=== PATIENT | female | born 2000 | race Caucasian/White ===

== ENCOUNTER 2019-12-10 16:36 | Emergency (ER) | payer OTHER, SELFPAY ==
[2019-12-10 16:49] VITALS: BP 164/70; PULSE 119; RESP 20; TEMP 37.5; O2SAT 99
--- NOTE | 2019-12-10 17:36 | ED.URI ---
HPI - URI/Sore Throat General Chief Complaint: Upper Respiratory Infection Stated Complaint: sore throat/diarreha/ear pain/body aches Time Seen by Provider: 12/10/19 17:25 Source: patient and RN notes reviewed Mode of arrival: ambulatory Limitations: no limitations History of Present Illness HPI Narrative: 19 year old female who presents to [facility] care with 4 day history of sore throat, head congestion, bilateral ear pain, and intermittent headache with fatigue. Patient also states one day history of left groin discomfort intermittently denies any nausea or vomiting or any incidence of diarrhea. Patient denies any cough or any noted shortness of breath or wheezing, lungs clear to auscultation with NWL899% on room air. MD elicited complaint: fever (feverish), sore throat, rhinorrhea, nasal congestion and other (headache, ear pain, fatigue, intermittent left groin discomfort) Onset (ago): day(s) (4) Consistency: intermittent and progressively worsening Severity: moderate Pain scale (0-10): 4 Description of mucous: clear Able to tolerate fluids by mouth: Yes Exacerbating factors: swallowing Relieving factors: nothing Associated symptoms: fever (states feverish), headache, rhinorrhea, nasal congestion, sore throat, ear pain and other (left groin pain intermittent) Treatments prior to arrival: ibuprofen Related Data Allergies Allergy/AdvReac Type Severity Reaction Status Date / Time No Known Allergies Allergy Verified 12/10/19 17:17 Review of Systems Review of Systems: Narrative: CONSTITUTIONAL:reports has felt feverish, chills, or sweats. EYES: Denies visual changes, redness, or discharge. ENT:positive rhinorrhea, congestion, sore throat, or otalgia. CARDIOVASCULAR: Denies chest pain, palpitations, or edema. RESPIRATORY: Denies cough or dyspnea. GASTROINTESTINAL: Denies abdominal pain, nausea, vomiting, or diarrhea.intermittent left groin discomfort GENITOURINARY: Denies dysuria or hematuria. SKIN: Denies rash or itching. MUSCULOSKELETAL: Denies back pain, joint pain, or myalgia. NEUROLOGIC: Positive frontal headache,no numbness, or weakness. PSYCHIATRIC: Denies anxiety or depression. 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 There is no relevant family history pertinent to the presenting complaint Exam Narrative: Exam Narrative: GENERAL: Ill-appearing, well-nourished, and in no acute distress. HEAD: Normocephalic, atraumatic. EYES: PERRLA and EOMI. ENT: Nares red with rhinorrhea no epistaxis. Mucous membranes moist,.frontal headache and pressure. TMs normal with good light reflex, throat red with white patches to tonsils, tonsils enlarged NECK: Supple. lymphadenopathy CHEST: Clear to auscultation. No respiratory distress.SAO2 99% on room air. HEART: Regular rate and rhythm. No murmur heard. Normal peripheral pulses. ABDOMEN: Soft, nontender, nondistended, normal active bowel sounds. EXTREMITIES: Normal range of motion. No edema. SKIN: Warm, dry, no rash. NEURO: No focal deficits. Alert and oriented x3. Course Vital Signs Vital signs: Vital Signs Temperature 37.5 C 12/10/19 16:49 Pulse Rate 119 H 12/10/19 16:49 Respiratory Rate 20 12/10/19 16:49 Blood Pressure 164/70 H 12/10/19 16:49 Pulse Oximetry 99 12/10/19 16:49 Temperature 37.5 C 12/10/19 16:49 Pulse Rate 119 H 12/10/19 16:49 Respiratory Rate 20 12/10/19 16:49 Blood Pressure 164/70 H 12/10/19 16:49 Pulse Oximet
== END 2019-12-10 17:55 | disposition home or self-care (01) ==
PROVIDERS: Emergency Provider Registered Nurse
DX: J01.90 Acute sinusitis, unspecified (principal); J02.9 Acute pharyngitis, unspecified
CPT/HCPCS: 87081; 87880; 99213; G0463

== ENCOUNTER 2022-01-21 14:28 | Emergency (ER) | payer BC, SELFPAY ==
[2022-01-21 14:34] VITALS: BP 125/67; PULSE 85; RESP 20; TEMP 36.8; O2SAT 99
--- NOTE | 2022-01-21 14:35 | ED.URI ---
HPI - URI/Sore Throat General Chief Complaint: Upper Respiratory Infection Stated Complaint: sore throat w/ ear pain Time Seen by Provider: 01/21/22 14:35 Source: patient and RN notes reviewed History of Present Illness HPI Narrative: Patient is a 21-year-old female who presents the urgent care with complaints of sore throat, bilateral ear pain and postnasal drainage. Patient states that she has not taken anything [id number] for her symptoms and denies any fever, nausea, vomiting. States her symptoms started 2 days ago. No other acute complaints. No acute distress noted. Patient aware of the plan of care. Some parts of this dictation were generated by voice recognition software and may contain typographical and/or grammatical inaccuracies. Related Data Home Medications Medication Instructions Recorded Confirmed escitalopram oxalate mg 01/21/22 01/21/22 hydroxyzine pamoate 01/21/22 trazodone 01/21/22 Allergies Allergy/AdvReac Type Severity Reaction Status Date / Time No Known Allergies Allergy Verified 01/21/22 14:35 Review of Systems Review of Systems: CONSTITUTIONAL: Denies fever, chills, or sweats. EYES: Denies visual changes, redness, or discharge. ENT: Reports of sore throat, congestion, postnasal drainage CARDIOVASCULAR: Denies chest pain, palpitations, or edema. RESPIRATORY: Denies cough or dyspnea. GASTROINTESTINAL: Denies abdominal pain, nausea, vomiting, or diarrhea. GENITOURINARY: Denies dysuria or hematuria. SKIN: Denies rash or itching. MUSCULOSKELETAL: Denies back pain, joint pain, or myalgia. NEUROLOGIC: Denies headache, numbness, or weakness. All other systems reviewed are negative, except as documented in HPI. [facility] Past Medical History Medical History (Updated 01/21/22 @ 15:04 by SILVIA Saldana) Patient denies significant medical history Social History Social History (Updated 12/13/19 @ 16:13 by Lorena Quezada NP) Smoking status: Never smoker Additional occupation/education comments: [employer] Gender identity (if verbalized by the patient): Female Comments At the time of my signature, I reviewed and agree with the nursing past medical, surgical, social, and family history. There is no relevant family history pertinent to the patient complaint. Exam Narrative: GENERAL: This is a well-nourished, well-developed patient, in no apparent distress. HEAD: normocephalic, atraumatic. EYES: PERRL. Sclera clear/white. Vision is grossly intact. EARS: External ears normal, auditory canals clear and without drainage, mild bilateral effusions without otitis. Bilateral TMs normal without perforation. Hearing grossly intact. NOSE: External nose normal with no obvious nasal discharge, nares without redness, no rhinorrhea. THROAT: Mucous membranes moist, posterior pharynx clear. Moderate postnasal drainage NECK: Neck supple, non-tender without lymphadenopathy CARDIOVASCULAR: Regular rate and rhythm without murmurs, gallops, or rubs. RESPIRATORY: Clear to auscultation. Breath sounds equal bilaterally. No wheezes, rales, or rhonchi. SKIN: warm, intact with no suspicious lesions or rash, good texture and turgor. NEURO: awake, alert, and oriented to person, place and time. There were no obvious focal neurologic abnormalities. EXTREMITIES: No clubbing, cyanosis, or edema. Course Course Level of Care: Express Care Visit Vital Signs Vital signs: Vital Signs Temperature 98.3 F 01/21/22 14:34 Pulse Rate 85 01/21/22 14:34 Respiratory Rate 20 01/21/22 14:34 Blood Pressure 125/67 01/21/22 14:34 Pulse Oximetry 99 01/21/22 14:34 Temperature 98.3 F 01/21/22 14:45 Pulse Rate 85 01/21/22 14:45 Respiratory Rate 20 01/21/22 14:45 Blood Pressure 125/67 01/21/22 14:45 Pulse Oximetry 99 01/21/22 14:45 Reviewed MDM - URI/Sore Throat MDM Narrative Medical decision making narrative: Reviewed lab results with the patient. She is a
[2022-01-21 14:45] VITALS: BP 125/67; PULSE 85; RESP 20; TEMP 36.8; O2SAT 99
== END 2022-01-21 15:12 | disposition home or self-care (01) ==
PROVIDERS: Emergency Provider Nurse Practitioner Family
DX: J02.9 Acute pharyngitis, unspecified (principal)
CPT/HCPCS: 87081; 87880; 99213; G0463

== ENCOUNTER 2023-10-07 13:44 | Outpatient (CLI) | payer OTHER, BC, SELFPAY ==
[2023-10-07 19:17] LABS: Alanine Aminotransferase 33 U/L (6-35); Albumin Level 4.3 g/dL (3.5-5.1); Alkaline Phosphatase 84 U/L (38-126); Anion Gap 9 mmol/L (8-16); Aspartate Amino Transferase 31 U/L (14-36); Bilirubin,Total 0.4 mg/dL (0.2-1.3); Blood Urea Nitrogen 16 mg/dL (7-17); Calcium 9.5 mg/dL (8.4-10.2); Carbon Dioxide 23 mmol/L (22-30); Chloride 106 mmol/L (98-107); Cholesterol 191 mg/dL (0-200); Estimated Glomerular Filt Rate > 60; Glucose 98 mg/dL (65-110); HDL Direct 33 mg/dL; Potassium 4.2 mmol/L (3.4-5.0); Sodium 138 mmol/L (137-145); Triglycerides 144 mg/dL (<150)
[2023-10-07 19:27] LABS: LDL Cholesterol Direct 117 mg/dL
[2023-10-07 20:05] LABS: Basophils Absolute Auto 0.1 K/mm3 (0.0-0.1); Eosinophils Absolute Auto 0.1 K/mm3 (0-0.3); Eosinophils Percent Auto 1.4 % (0-4.4); Hemoglobin 13.7 g/dL (12.0-15.0); Immature Granulocyte Absolute 0.02 K/mm3 (0.00-0.031); Immature Granulocyte Percent A 0.2 % (0-0.5); Lymphocytes Percent Auto 21.2 % (18.3-44.2); Mean Corpuscular HGB Conc 32.6 g/dl (32-36); Mean Corpuscular Hemoglobin 27.6 pg (26-34); Mean Corpuscular Volume 84.7 fl (80-100); Mean Platelet Volume 10.5 fl (7.4-10.4); Monocytes Absolute Auto 0.7 K/mm3 (0.1-0.6); Monocytes Percent Auto 7.2 % (2.6-8.5); Neutrophils Absolute Auto 6.8 K/mm3 (1.3-6.7); Platelet Count Result 421 k/mm3 (150-375); Red Blood Count 4.96 M/mm3 (4.2-5.4); Red Cell Distribution Width 13.7 % (11.5-14.5); White Blood Count 9.9 K/mm3 (4.5-10.0)
== END 2023-10-07 13:45 | disposition home or self-care (01) ==
LOC: ANHGOSHLAB 13:46
PROVIDERS: PCP Internal Medicine; Visit Provider Nurse Practitioner
DX: Z13.220 Encounter for screening for lipoid disorders (principal); F41.9 Anxiety disorder, unspecified; Z13.29 Encounter for screening for other suspected endocrine disorder
CPT/HCPCS: 36415; 80053; 80061; 84443; 85025

== ENCOUNTER 2025-02-26 10:01 | Emergency (ER) | payer OTHER, BC, SELFPAY ==
--- NOTE | ~2025-02-26 | XR_ITS ---
XR knee LT min 4V 02/26/2025 10:56 INDICATION: Trauma to the left knee PROCEDURE: 5 views left knee COMPARISON: No prior studies for comparison. FINDINGS: Fracture, dislocation or subluxation is not identified. The soft tissues appear within norm al limits. No foreign bodies are identified. IMPRESSION: 1: NO ACUTE BONE OR JOINT ABNORMALITY IDENTIFIED. Reviewed, dictated and finalized at location A.
--- OUTSIDE RECORDS SUMMARY | 2025-02-26 10:05 | XMS_ITS | Continuity of Care Document ---
Author Organization [facility] [place] Address [address] [place] [address] Phone Care Team Providers Care Char Filter Operator Name Role Phone Dee OD, Jair Unavailable Unavailable Procedures Procedure Date Eye Exam & Treatment Refraction Eye Exam & Treatment Eye Exam & Treatment Advance Directives Directive Yes / No Effective Date File Name No Information Encounters Encounter Description Practice Location Reason(s) For Visit Diagnoses Date Provider Providers Copied on Encounter [facility], [address] [place] [address] [address], [place], [place], [id number], tel:[phone] [facility] No Information 3-200 9 Dee OD Jair. [facility] , [address], [place], [place], [facility], . tel:[phone] [facility], [address] [place] [address] [address], [place], [place], [id number], [place] tel:[phone] [facility] No Information 2-200 8 Dee OD Jair. [address] [facility] , [address], [place], [address], [place]. tel:[phone] [facility], [address] [place] [address] [address], [place], [place], [id number], tel:[phone] [facility] No Information 7-200 7 Dee OD Jair. [address] [facility] , [address], [place], [address], [place]. tel:[phone] Family History Family Member Type Diagnosis Age At Onset No Information Payers Payer name Insurance type Covered republican ID Edmundo alexandre(s) Medicaid [facility] [id number] Social History Type Description Quantity Date Captured [...]
--- OUTSIDE RECORDS SUMMARY | 2025-02-26 10:05 | XMS_ITS | Referral Summary ---
Author Organization [facility] Address [address] [place] [address] Care Team Providers Care Program Rep Name Role Phone No, Physician Primary Care Provider [phone] Steve Yates MD Unavailable [phone] Allergies No known active allergies Medications naproxen (NAPROSYN) 375 mg tablet Take 1 tablet (375 mg total) by mouth 2 (two) times a day with meals P.r.n. pain. Collaborating physician Jarrell Ch MD 20 tablet 1 Active Additional Information Patient not taking.Reported on 04/25/2022 cyclobenzaprin e (FLEXERIL) 5 mg tablet Take 1 tablet (5 mg total) by mouth 2 (two) times a day as needed (Take as directed to relax muscles) Collaborating physician Jarrell Ch MD 20 tablet 1 Active Additional Information Patient not taking.Reported on 04/25/2022 mupirocin (BACTROBAN) 2 % ointmentIndica tions:Skin infection Apply topically 3 (three) times a day 22 g 2 Active Active Problems Problem Noted Date Diagnosed Date Lumbar strain, initial encounter 08/11/2021 Bilateral sciatica 08/11/2021 Kidney stone 04/13/2021 Overview (04/13/2021): Added automatically from request for surgery [id number] Right ureteral stone 04/04/2021 Class 3 severe obesity due t o excess calories without serious comorbidity in adult 04/04/2021 Acute cystitis with hematuria 04/04/2021 Social History Tobacco Use Types Packs/Day Years Used Date Smoking Tobacco: Never Smokeless Tobacco: Never Alcohol Use Standard Drinks/Week Comments Yes 0 (1 standard drink = 0.6 oz pur e alcohol) occasional AUDIT-C Answer Date Recorded Q1: How often do you have a drink containing alc ohol? Never 04/26/2021 Average Number of Drinks Not on file 021 Frequency of Binge Drinking Not on file 03/30 Personal Safety Answer Date Recorded Have you ever been in or are you currently in a harmful physical or emotional relationship or is someone making you feel afraid or unsafe? Denies 09/17/2024 Comments No Sex and Gender Information Value Date Recorded Sex Assigned at Not on file Legal Sex Female 3:39 AM CDT Gender Identity Not on file Sexual Orientation Not on file Last Filed Vital Signs Vital Sign Reading Time Taken Comments Blood Pressure 134/75 09/17/2024 6:41 PM NETWORK SYSTEMS ENGINEER Pulse 85 09/17/2024 6:41 PM NETWORK SYSTEMS ENGINEER Temperature 37.3 C (99.2 F) 09/17/2024 3:29 PM NETWORK SYSTEMS ENGINEER Respiratory Rate 18 09/17/2024 6:41 PM NETWORK SYSTEMS ENGINEER Oxygen Saturation 98% 09/17/2024 6:41 PM NETWORK SYSTEMS ENGINEER Inhaled Oxygen Concentration - - Weight 104.3 kg (230 lb) 09/17/2024 3:29 PM NETWORK SYSTEMS ENGINEER Height 162.6 cm (5' 4) 09/17/2024 3:29 PM NETWORK SYSTEMS ENGINEER Body Mass Index 39.48 09/17/2024 3:29 PM NETWORK SYSTEMS ENGINEER Plan of Treatment Not on file Medical Devices Implanted Type Area Manager Custom Device Identifier Shelf Expiration Date Model / Serial / Lot [employer] Deuce 180-222 Contour 6fr 24cm Large Inner Lumen Low Profile Bladder Jair Taper Latex Free - [id number] Implanted:Qty: 1 on 04/05/2021 by Steve Yates MD at [facility] Explanted:04/26 by Steve Yates MD (Quantity not on file) Right: Ureter [employer] Deuce 12/01/2023 180-222 / / [id number] Explanted Type Area Manager Custom Device Identifier Shelf Expiration Date Model / Serial / Lot [employer] Deuce 180-223 Contour 6fr 26cm Large Inner Lumen Low Profile Bladder Jair Taper Latex Free - [id number] Implanted:Qty: 1 on 04/26/2021 by Steve Yates MD at [facility] Explanted:Qty: 1 on 04/30/2021 Right: Ureter [employer] Deuce 02/01/2024 180-223 / / [id number] [place]2U [place] [facility] [employer] Advance Directives For more information, please contact: [phone] * Full Code (Latest Code Status on File) Date Activated Date Inactivated Comments 04/04/2021 7:50 AM 04/05/2021 10:18 PM Care Teams Program Rep Relationship Specialty Start Date End Date No, Physician PCP - General 04/04/21 Steve Yates MD Consulting Physician Urology 04/05/21
--- OUTSIDE RECORDS SUMMARY | 2025-02-26 10:05 | XMS_ITS | Clinical Summary ---
Author Organization [facility] Address [address] [place] [address] Care Team Providers Care Stock Order Lister Name Role Phone No, Physician Primary Care Provider [phone] Steve Yates MD Unavailable [phone] Allergies No known active allergies Medications [...] (04/13/2021): Added automatically from request for surgery [id number] Right ureteral stone 04/04/2021 Class 3 severe obesity due t o excess calories without serious comorbidity in adult 04/04/2021 Acute cystitis with hematuria 04/04/2021 Surgical History Surgery Date Site/Laterality Comments CYSTOSCOPY Medical History Medical History Date Comments Chronic kidney disease kidney [facility] Social History Tobacco Use Types Packs/Day Years [...] on file Sexual Orientation Not on file Obstetrics History Last Filed Vital Signs Vital Sign Reading Time Taken Comments Blood Pressure 134/75 09/17/2024 6:41 PM SOCK BOARDER Pulse 85 09/17/2024 6:41 PM SOCK BOARDER Temperature 37.3 C (99.2 F) 09/17/2024 3:29 PM SOCK BOARDER Respiratory Rate 18 09/17/2024 6:41 PM SOCK BOARDER Oxygen Saturation 98% 09/17/2024 6:41 PM SOCK BOARDER Inhaled Oxygen Concentration - - Weight 104.3 kg (230 lb) 09/17/2024 3:29 PM SOCK BOARDER Height 162.6 cm (5' 4) 09/17/2024 3:29 PM SOCK BOARDER Body Mass Index 39.48 09/17/2024 3:29 PM SOCK BOARDER Plan of Treatment Health Maintenance Due Date Last Done Comments Cervical Cancer Screening 1999 Depression Screening 1999 Hepatitis C Screening 1999 Regular Well Visit/Exam 18-64 2017 DTaP/Tdap/Td Vaccine (7 - Td or Tdap) 05/16/2021 05/16/2011, 01/21/2005, 04/02/2001, Additional history exists Influenza Vaccine (Season Ended) 2025 06/01/2020, 07/05/2014, 09/08/2013, Additional history exists Hepatitis B Screening Completed 11/09/2001 , 06/26/2000, 03/25/2000 Varicella Vaccines Completed 05/16/2011, 0 10/13/2000, 10/13/2000 Pneumococcal vaccine <65 Completed 012, 12/23/2000, 10/13/2000, Additional history exists HPV Vaccines Completed 09/08/2013, 0804/2013, 01/26/2013 Medical Devices Implanted Type Area Rest Room Matron Device Identifier Shelf Expiration Date Model / Serial / Lot [employer] Deuce 180-222 Contour 6fr 24cm Large Inner Lumen Low Profile Bladder Jair Taper Latex Free - [id number] Implanted:Qty: 1 on 04/05/2021 by Steve Yates MD at [facility] Explanted:04/26 by Steve Yates MD (Quantity not on file) Right: Ureter [employer] Deuce 12/01/2023 180-222 / / [id number] Explanted Type Area Rest Room Matron Device Identifier Shelf Expiration Date Model / Serial / Lot [employer] Deuec 180-223 Contour 6fr 26cm Large Inner Lumen Low Profile Bladder Jair Taper Latex Free - [id number] Implanted:Qty: 1 on 04/26/2021 by Steve Yates MD at [facility] Explanted:Qty: 1 on 04/30/2021 Right: Ureter [employer] Deuce 02/01/2024 180-223 / / [id number] Insurance [facility] [place]ivery [place]ivery [place] [employer] Advance Directives For more information, please contact: [phone] * Full Code (Latest Code Status on File) Date Activated Date Inactivated Comments 04/04/2021 7:50 AM 04/05/2021 10:18 PM Care Teams Stock Order Lister Relationship Specialty Start Date End Date No, Physician PCP - General 04/04/21 Steve Yates MD Consulting Physician Urology 04/05/21
--- OUTSIDE RECORDS SUMMARY | 2025-02-26 10:16 | XMS_ITS | Continuity of Care Document ---
Author Organization [facility] Address [address] [place] [address] Phone Care Team Providers Care Distributed Generation Project Manager Name Role Phone Dee OD, Jair Unavailable Unavailable Procedures Procedure Date Eye Exam & Treatment Refraction Eye Exam & Treatment Eye Exam & Treatment Advance Directives Directive Yes / No Effective Date File Name No Information Encounters Encounter Description Practice Location Reason(s) For Visit Diagnoses Date Provider Providers Copied on Encounter [facility], [address] [place] [address] [address], [place], [place], [id number], tel:[phone] [facility] No Information 3-200 9 Dee OD Jair. [facility] , [address], [place], [place], [facility], . tel:[phone] [facility], [address] [place] [address] [address], [place], [place], [id number], [place] tel:[phone] [facility] No Information 2-200 8 Dee OD Jair. [address] [facility] , [address], [place], [address], [place]. tel:[phone] [facility], [address] [place] [address] [address], [place], [place], [id number], tel:[phone] [facility] No Information 7-200 7 Dee OD Jair. [address] [facility] , [address], [place], [address], [place]. tel:[phone] Family History Family Member Type Diagnosis Age At Onset No Information Payers Payer name Insurance type Covered republican ID Edmundo alexandre(s) Medicaid [facility] [id number] Social History Type Description Quantity Date Captured [...]
[2025-02-26 10:19] VITALS: BP 124/65; PULSE 20; RESP 20; TEMP 36.6; O2SAT 99
--- NOTE | 2025-02-26 10:28 | ED.GENADULT ---
HPI - General Adult General Chief complaint: Extremity Injury, Lower Stated complaint: sinus pain, left knee pain Time Seen by Provider: 02/26/25 10:28 Source: patient, RN notes reviewed and old records reviewed Mode of arrival: ambulatory Limitations: no limitations History of Present Illness HPI narrative: 24 year old female who presents to [facility] care with complaints of 3 day history of sore throat, sinus congestion and drainage and feeling some shortness of breath.Patient speaking in full sentences, no labored breathing noted, SAO2 99% on room air. Patient also reports that her work cart hit her left knee last evening at work and she is having pain to area above her knee cap and to the lateral side of her knee, has not applied ice or taken any OTC medication for her discomfort. MD complaint: sore throat, sinus congestion,reports some trouble breath,pain left knee Onset (ago): day(s) (3) Severity scale (1-10): 7 Quality: aching and other (throbbing) Treatments prior to arrival: other (DayQuil and Zyrtec) Related Data Allergies Allergy/AdvReac Type Severity Reaction Status Date / Time No Known Allergies Allergy Verified 02/26/25 10:26 Review of Systems Review of Systems: CONSTITUTIONAL: Denies fever, chills, or sweats. EYES: Denies visual changes, redness, or discharge. ENT: Positive for rhinorrhea, sinus congestion, positive for sore throat, no otalgia. CARDIOVASCULAR: Denies chest pain, palpitations, or edema. RESPIRATORY: Denies cough reports some shortness of breath. GASTROINTESTINAL: Denies abdominal pain, nausea, vomiting, or diarrhea. GENITOURINARY: Denies dysuria or hematuria. SKIN: Denies rash or itching. MUSCULOSKELETAL: Denies back pain,positive for left knee pain after being hit by work cart last evening, or myalgia. NEUROLOGIC: Denies headache, numbness, or weakness. PSYCHIATRIC: positive for history of anxiety or depression. All systems reviewed & are unremarkable except as noted in HPI and below PMFSH Past Medical History Medical History Migraine Headache GERD (gastroesophageal reflux disease) Anxiety History of nephrolithotomy with removal of calculi (~2021) Patient denies significant medical history Family History Family History Mother Depression Depression with anxiety Sibling Depression Depression with anxiety Grandparent Depression Other Heart disease Hypertension Social History Social History Smoking status: Current some day smoker Tobacco type: e-cigarettes/vaping Additional smoking assessment comments: vaping for 2 years Alcohol intake: never Substance use type: does not use Lack of Transportation: No Lack of Food: Never True Current Housing: I Have Housing Concerned About Future Housing: No Difficulty Paying Gas/Electric Bills: No Difficulty Paying for Meds: No Currently Unemployed: No Education: High School Diploma/GED Difficulty w/ Childcare or Family Care: No Living arrangements: with family Occupation/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 There is no relevant family history pertinent to the presenting complaint Exam Narrative: GENERAL: Well-appearing, well-nourished, and in no acute distress. HEAD: Normocephalic, atraumatic. EYES: PERRLA and EOMI. ENT: Nares clear, clear rhinorrhea no epistaxis. Mucous membranes moist.TM's with brisk light reflex, throat with some redness and minimal enlargement of tonsils noted. NECK: Supple. no lymphadenopathy CHEST: Clear to auscultation. No respiratory distress. no tachypnea or any retractions, speaks in full sentences SAO2 99% on room air HEART: Regular rate and rhythm. No murmur heard. Normal peripheral pulses. ABDOMEN: Soft, nontender, nondistended, normal active bowel sounds. EXTREMITIES: Normal range of motion. No edema.Exception noted to pain to left knee above knee cap and to lateral aspect of knee with minimal swelling, full ROM noted able to apply full weight bearing on ambulation. SKIN: Warm, dry, no rash. NEURO: No focal deficits. Alert and oriented x3. Course Course Emergency Course: Patient is aware of diagnosis, understands and agrees to treatment plan.? Anticipatory guidance given.? Patient agrees to follow-up as directed and is aware of reasons to seek care at the emergency department. Portions of this record may have been created with voice recognition software Level of Care: [facility] Visit Vital Signs Vital signs: Vital Signs Temperature 36.6 C 02/26/25 10:19 Pulse Rate 20 L 02/26/25 10:19 Respiratory Rate 20 02/26/25 10:19 Blood Pressure 124/65 02/26/25 10:19 Pulse Oximetry 99 02/26/25 10:19 Oxygen Delivery Room Air 02/26/25 10:19 Temperature 36.6 C 02/26/25 10:19 Pulse Rate 20 L 02/26/25 10:19 Respiratory Rate 20 02/26/25 10:19 Blood Pressure 124/65 02/26/25 10:19 Pulse Oximetry 99 02/26/25 10:19 Oxygen Delivery Room Air 02/26/25 10:19 Reviewed Medical Decision Making MDM Narrative Medical decision making narrative: Exam findings and imaging show no acute concerns or changes; patient is non-toxic appearing and is in no distress.? Patient is appropriate for outpatient treatment and follow-up Differential Diagnosis Differential Diagnosis: URI,pharyngitis, strep pharyngitis, contusion to left knee, pain to left knee Medical Records Medical records reviewed: Yes I reviewed the external patient's medical records. Vital Signs Vital Signs: Vital Signs Temperature 36.6 C 02/26/25 10:19 Pulse Rate 20 L 02/26/25 10:19 Respiratory Rate 20 02/26/25 10:19 Blood Pressure 124/65 02/26/25 10:19 Pulse Oximetry 99 02/26/25 10:19 Oxygen Delivery Room Air 02/26/25 10:19 Temperature 36.6 C 02/26/25 10:19 Pulse Rate 20 L 02/26/25 10:19 Respiratory Rate 20 02/26/25 10:19 Blood Pressure 124/65 02/26/25 10:19 Pulse Oximetry 99 02/26/25 10:19 Oxygen Delivery Room Air 02/26/25 10:19 reviewed Lab Data Lab results reviewed: Yes I reviewed the patient's lab results. Lab results narrative: strep screen negative, culture sent Labs: Lab Results 02/26/25 Range/Units 10:39 POC Grp A Strep Screen Negative (Negative) Imaging Data Attestation: I personally reviewed and interpreted this imaging study as follows: My impression: no acute bone or joint abnormality Radiologist's impression: Formerly Named [facility] [address] [place] [address] XRay Report Signed Patient: Stefany Kauffman : 2000 MR#: [id number] Age: 24 Acct:[id number] Loc: [facility] ADM Date: 02/26/25Attending Dr: Ordering Physician: Lorena Quezada APRN Date of Service: 02/26/25 Procedure(s): XR knee LT min 4V Accession Number(s): [id number] cc: Lorena Quezada APRN; Jarrell Edwards DO~ XR knee LT min 4V 02/26/2025 10:56 INDICATION: Trauma to the left knee PROCEDURE: 5 views left knee COMPARISON: No prior studies for comparison. FINDINGS: Fracture, dislocation or subluxation is not identified. The soft tissues appear within normal limits. No foreign bodies are identified. IMPRESSION: 1: NO ACUTE BONE OR JOINT ABNORMALITY IDENTIFIED. Reviewed, dictated and finalized at location A. Please be advised this is a medical document. It is intended for pnqw-al-bymg communication. It is written in medical language and may contain unfamiliar abbreviations or verbiage. Medical documents are intended to carry relevant information, facts as evident, and the clinical opinion of the practitioner at the time of the encounter. This report may have been done utilizing a voice recognition system. Attempts have been made to correct errors. However, there may be uncorrected grammatical, spelling, and recognition errors present. The file time of this note does not necessarily represent the time of service. Dictated By: Navi Avila MD 02/26/25 1057 Signed By: <Electronically signed by Navi Avila MD in OV> Critical Care Time Critical Care Time Critical Care Time: No Discharge Plan Discharge Clinical Impression: Upper respiratory tract infection Qualifiers: URI type: unspecified URI Qualified Code(s): J06.9 - Acute upper respiratory infection, unspecified Knee pain, left Qualifiers: Chronicity: acute Qualified Code(s): M25.562 - Pain in left knee Pharyngitis Qualifiers: Pharyngitis/tonsillitis etiology: unspecified etiology Qualified Code(s): J02.9 - Acute pharyngitis, unspecified Patient Disposition: Home Condition: Stable Instructions: Upper Respiratory Infection (ED), Knee Pain (ED) Additional Instructions: Increase fluids especially juices and water Zgtv-[id number] cough and cold medicine of your choice for your symptoms Zyrtec Claritin or Tabitha daily may include plain Sudafed in a.m. heat to the face 20-30 minutes 4-6 times a day for pain Salt water gargles, throat lozenges or throat sprays as desired Tylenol or ibuprofen for any fever pain Your strep test today was negative. A throat culture will be sent to the laboratory for further testing. IF the test is positive, you will receive a phone call within 48 hours and an appropriate antibiotic will be initiated at that time. Follow-up with orthopedic surgeon if continued concerns Follow-up with PCP if further problems or concerns Ice to the area 20-30 minutes 4-6 times a day Elevate above heart If your symptoms persist, change or worsen significantly before you can contact your personal physician then please, without delay, go to the emergency department for further evaluation. Follow-up with PCP in 7-10 days or sooner if needed Patient Language: Swedish Prescriptions: No Action escitalopram oxalate [Lexapro] 20 mg tablet 20 mg PO DAILY Qty: 90 3RF Follow-up/Referrals: Jarrell Edwards DO [Primary Care Provider] - Time of Disposition: 11:18 Quality Ivor Coma Scale Eyes: Open Verbal: Oriented and Alert Motor: Follows Commands Partha Coma Total Score: 15
[2025-02-26 10:41] LABS: EDSTREPNEGPOS1 Negative (Negative)
== END 2025-02-26 11:23 | disposition home or self-care (01) ==
PROVIDERS: Emergency Provider Registered Nurse; PCP Internal Medicine
DX: J06.9 Acute upper respiratory infection, unspecified (principal); J02.9 Acute pharyngitis, unspecified; M25.562 Pain in left knee; F17.290 Nicotine dependence, other tobacco product, uncomplicated; K21.9 Gastro-esophageal reflux disease without esophagitis; F41.9 Anxiety disorder, unspecified
CPT/HCPCS: 73564; 87081; 87880; 99213; G0463

== ENCOUNTER 2025-08-17 09:33 | Emergency (ER) | payer OTHER, SELFPAY ==
--- OUTSIDE RECORDS SUMMARY | 2009-03-01 05:15 | XMS_ITS | Continuity of Care Document ---
Author Organization [facility] Address [address] [place] [address] Phone Care Team Providers Care Child And Adolescent Therapist Name Role Phone Dee OD, Jair Unavailable Unavailable Procedures Procedure Date Eye Exam & Treatment Refraction Eye Exam & Treatment Eye Exam & Treatment Advance Directives Directive Yes / No Effective Date File Name No Information Encounters Encounter Description Practice Location Reason(s) For Visit Diagnoses Date Provider Providers Copied on Encounter [facility], [address] [place] [address] [address], [place], [place], [address], tel:[phone] SEC [facility] No Information 3-200 9 Dee OD Jair. [facility] , [address], [place], [place], [facility], . tel:[phone] [facility], [address] [place] [address] [address], [place], [place], [address], [place] tel:[phone] SEC [facility] No Information 2-200 8 Dee OD Jair. [address] [facility] , [address], [place], [address], [place]. tel:[phone] [facility], [address] [place] [address] [address], [place], [place], [address], tel:[phone] SEC [facility] No Information 7-200 7 Dee OD Jair. [address] [facility] , [address], [place], [address], [place]. tel:[phone] Family History Family Member Type Diagnosis Age At Onset No Information Payers Payer name Insurance type Covered constitution party ID Edmundo alexandre(s) Medicaid [facility] [id number] Social History Type Description Quantity Date Captured Comments Sex Female Smoking Status No Information Chief Complaint And Reason For Visit No Information Reason For Referral Reason For Referral No Information History Of Present Illness Encounter Date Complaint History Of Prese nt Illness No Information Functional Status Date Functional Assessmen t No Information Instructions Date Instruction Additional Infor mation No Information Assessments Type Assessment Date No Information Patient Care Teams Name Effective Dates (start - stop) Status Members No Information
--- OUTSIDE RECORDS SUMMARY | 2009-03-01 05:15 | XMS_ITS | Continuity of Care Document ---
Author Organization [facility] Address [address] [place] [address] Phone Care Team Providers Care Electric Motorman Name Role Phone Dee OD, Jair Unavailable Unavailable Procedures Procedure Date Eye Exam & Treatment Refraction Eye Exam & Treatment Eye Exam & Treatment Advance Directives Directive Yes / No Effective Date File Name No Information Encounters Encounter Description Practice Location Reason(s) For Visit Diagnoses Date Provider Providers Copied on Encounter [facility], [address] [place] [address] [address], [place], [place], [address], tel:[phone] SEC [facility] named [facility] No Information 3-200 9 Dee OD Jair. [facility] , [address], [place], [place], [facility], . tel:[phone] [facility], [address] [place] [address] [address], [place], [place], [address], [place] tel:[phone] SEC Formerly named [facility] No Information 2-200 8 Dee OD Jair. [address] [facility] , [address], [place], [address], [place]. tel:[phone] [facility], [address] [place] [address] [address], [place], [place], [address], tel:[phone] SEC [facility] named [facility] No Information 7-200 7 Dee OD Jair. [address] [facility] , [address], [place], [address], [place]. tel:[phone] Family History Family Member Type Diagnosis Age At Onset No Information Payers Payer name Insurance type Covered republican ID Edmundo alexandre(s) Medicaid [facility] [id number] Social History Type Description Quantity Date Captured [...]
--- OUTSIDE RECORDS SUMMARY | 2009-03-01 05:15 | XMS_ITS | Continuity of Care Document ---
Author Organization [facility] Address [address] [place] [address] Phone Care Team Providers Care Chrome Cleaner Name Role Phone Dee OD, Jair Unavailable Unavailable Procedures Procedure Date Eye Exam & Treatment Refraction Eye Exam & Treatment Eye Exam & Treatment Advance Directives Directive Yes / No Effective Date File Name No Information Encounters Encounter Description Practice Location Reason(s) For Visit Diagnoses Date Provider Providers Copied on Encounter [facility], [address] [place] [address] [address], [place], [place], [address], tel:[phone] [facility] No Information 3-200 9 Dee OD Jair. [facility] , [address], [place], [place], [facility], . tel:[phone] [facility], [address] [place] [address] [address], [place], [place], [address], [place] tel:[phone] [facility] No Information 2-200 8 Dee OD Jair. [address] [facility] , [address], [place], [address], [place]. tel:[phone] [facility], [address] [place] [address] [address], [place], [place], [address], tel:[phone] [facility] No Information 7-200 7 Dee OD Jair. [address] [facility] , [address], [place], [address], [place]. tel:[phone] Family History Family Member Type Diagnosis Age At Onset No Information Payers Payer name Insurance type Covered green party ID Edmundo alexandre(s) Medicaid [facility] [id number] Social History Type Description Quantity Date Captured [...]
--- OUTSIDE RECORDS SUMMARY | 2009-03-01 05:15 | XMS_ITS | Continuity of Care Document ---
Author Organization [facility] [place] [place] Address [address] [place] [address] Phone Care Team Providers Care Hat Forming Machine Feeder Name Role Phone Dee OD, Jair Unavailable Unavailable Procedures Procedure Date Eye Exam & Treatment Refraction Eye Exam & Treatment Eye Exam & Treatment Advance Directives Directive Yes / No Effective Date File Name No Information Encounters Encounter Description Practice Location Reason(s) For Visit Diagnoses Date Provider Providers Copied on Encounter [facility], [address] [place] [address] [address], [place], [place], [address], tel:[phone] SEC [facility] No Information 3-200 9 Dee OD Jair. [facility] , [address], [place], [place], [facility], . tel:[phone] [facility], [address] [place] [address] [address], [place], [place], [address], [place] tel:[phone] SEC [facility] No Information 2-200 8 Dee OD Jair. [address] [facility] , [address], [place], [address], [place]. tel:[phone] [facility], [address] [place] [address] [address], [place], [place], [address], tel:[phone] SEC [facility] No Information 7-200 7 Dee OD Jair. [address] [facility] , [address], [place], [address], [place]. tel:[phone] Family History Family Member Type Diagnosis Age At Onset No Information Payers Payer name Insurance type Covered alliance party ID Edmundo alexandre(s) Medicaid [facility] [id number] Social History Type Description Quantity Date Captured [...]
--- OUTSIDE RECORDS SUMMARY | 2009-03-01 05:15 | XMS_ITS | Continuity of Care Document ---
Author Organization [facility] Address [address] [place] [address] Phone Care Team Providers Care Tool Keeper Name Role Phone Dee OD, Jair Unavailable Unavailable Procedures Procedure Date Eye Exam & Treatment Refraction Eye Exam & Treatment Eye Exam & Treatment Advance Directives Directive Yes / No Effective Date File Name No Information Encounters Encounter Description Practice Location Reason(s) For Visit Diagnoses Date Provider Providers Copied on Encounter [facility], [address] [place] [address] [address], [place], [place], [address], tel:[phone] SEC [facility] No Information 3-200 9 Dee OD Jair. [facility] , [address], [place], [place], [facility], . tel:[phone] [facility], [address] [place] [address] [address], [place], [place], [address], [place] tel:[phone] SEC [facility] No Information 2-200 8 Dee OD Jair. [address] [facility] , [address], [place], [address], [place]. tel:[phone] [facility], [address] [place] [address] [address], [place], [place], [address], tel:[phone] SEC [facility] No Information 7-200 7 Dee OD Jair. [address] [facility] , [address], [place], [address], [place]. tel:[phone] Family History Family Member Type Diagnosis Age At Onset No Information Payers Payer name Insurance type Covered constitution party ID Edmundo alexandre(s) Medicaid [facility] [id number] Social History Type Description Quantity Date Captured [...]
--- OUTSIDE RECORDS SUMMARY | 2009-03-01 05:15 | XMS_ITS | Continuity of Care Document ---
Author Organization [facility] Address [address] [place] [address] Phone Care Team Providers Care Evp Chief Exploration Officer Name Role Phone Dee OD, Jair Unavailable Unavailable Procedures Procedure Date Eye Exam & Treatment Refraction Eye Exam & Treatment Eye Exam & Treatment Advance Directives Directive Yes / No Effective Date File Name No Information Encounters Encounter Description Practice Location Reason(s) For Visit Diagnoses Date Provider Providers Copied on Encounter [facility], [address] [place] [address] [address], [place], [place], [address], tel:[phone] SEC [facility] No Information 3-200 9 Dee OD Jair. [facility] , [address], [place], [place], [facility], . tel:[phone] [facility], [address] [place] [address] [address], [place], [place], [address], [place] tel:[phone] SEC [facility] No Information 2-200 8 Dee OD Jair. [address] [facility] , [address], [place], [address], [place]. tel:[phone] [facility], [address] [place] [address] [address], [place], [place], [address], tel:[phone] SEC [facility] No Information 7-200 7 Dee OD Jair. [address] [facility] , [address], [place], [address], [place]. tel:[phone] Family History Family Member Type Diagnosis Age At Onset No Information Payers Payer name Insurance type Covered democrat ID Edmundo alexandre(s) Medicaid [facility] [id number] Social History Type Description Quantity Date Captured [...]
--- OUTSIDE RECORDS SUMMARY | 2009-03-01 05:15 | XMS_ITS | Continuity of Care Document ---
Author Organization [facility] Address [address] [place] [address] Phone Care Team Providers Care Vessel Captain Name Role Phone Dee OD, Jair Unavailable Unavailable Procedures Procedure Date Eye Exam & Treatment Refraction Eye Exam & Treatment Eye Exam & Treatment Advance Directives Directive Yes / No Effective Date File Name No Information Encounters Encounter Description Practice Location Reason(s) For Visit Diagnoses Date Provider Providers Copied on Encounter [facility], [address] [place] [address] [address], [place], [place], [address], tel:[phone] SEC [facility] No Information 3-200 9 Dee OD Jair. [facility] , [address], [place], [place], Formerly [facility], . tel:[phone] [facility], [address] [place] [address] [address], [place], [place], [address], [place] tel:[phone] SEC [facility] No Information 2-200 8 Dee OD Jair. [address] [facility] , [address], [place], [address], [place]. tel:[phone] [facility], [address] [place] [address] [address], [place], [place], [address], tel:[phone] SEC [facility] No Information 7-200 7 Dee OD Jair. [address] [facility] , [address], [place], [address], [place]. tel:[phone] Family History Family Member Type Diagnosis Age At Onset No Information Payers Payer name Insurance type Covered constitution party ID Edmundo alexandre(s) Medicaid [facility] [id number] Social History Type Description Quantity Date Captured [...]
--- OUTSIDE RECORDS SUMMARY | 2009-03-01 05:15 | XMS_ITS | Continuity of Care Document ---
Author Organization [facility] Address [address] [place] [address] Phone Care Team Providers Care Mission Commander Name Role Phone Dee OD, Jair Unavailable Unavailable Procedures Procedure Date Eye Exam & Treatment Refraction Eye Exam & Treatment Eye Exam & Treatment Advance Directives Directive Yes / No Effective Date File Name No Information Encounters Encounter Description Practice Location Reason(s) For Visit Diagnoses Date Provider Providers Copied on Encounter [facility], [address] [place] [address] [address], [place], [place], [address], tel:[phone] SEC [facility] No Information 3-200 9 Dee OD Jair. [facility] , [address], [place], [place], [facility], . tel:[phone] [facility], [address] [place] [address] [address], [place], [place], [address], [place] tel:[phone] SEC [facility] No Information 2-200 8 Dee OD Jair. [address] [facility] , [address], [place], [address], [place]. tel:[phone] [facility], [address] [place] [address] [address], [place], [place], [address], tel:[phone] SEC [facility] No Information 7-200 7 Dee OD Jair. 2421 [facility] , [address], [place], [address], [place]. tel:[phone] Family History Family Member Type Diagnosis Age At Onset No Information Payers Payer name Insurance type Covered green party ID Edmundo alexandre(s) Medicaid [facility] [id number] Social History Type Description Quantity Date Captured [...]
--- OUTSIDE RECORDS SUMMARY | 2009-03-01 05:15 | XMS_ITS | Continuity of Care Document ---
Author Organization [facility] Address [address] [place] [address] Phone Care Team Providers Care Mill Roll Operator Name Role Phone Dee OD, Jair Unavailable Unavailable Procedures Procedure Date Eye Exam & Treatment Refraction Eye Exam & Treatment Eye Exam & Treatment Advance Directives Directive Yes / No Effective Date File Name No Information Encounters Encounter Description Practice Location Reason(s) For Visit Diagnoses Date Provider Providers Copied on Encounter [facility], [address] [place] [address] [address], [place], [place], [address], tel:[phone] SEC [facility] No Information 3-200 9 Dee OD Jair. [facility] , [address], [place], [place], [facility], . tel:[phone] [facility], [address] [place] [address] [address], [place], [place], [address], [place] tel:[phone] SEC [facility] No Information 2-200 8 Dee OD Jair. [address] [facility] , [address], [place], [address], [place]. tel:[phone] [facility], [address] [place] [address] [address], [place], [place], [address], tel:[phone] SEC [facility] No Information 7-200 7 Dee OD Jair. [address] [facility] , [address], [place], [address], [place]. tel:[phone] Family History Family Member Type Diagnosis Age At Onset No Information Payers Payer name Insurance type Covered constitution party ID Edmundo alexandre(s) Medicaid [facility] [id number] Social History Type Description Quantity Date Captured [...]
--- OUTSIDE RECORDS SUMMARY | 2009-03-01 05:15 | XMS_ITS | Continuity of Care Document ---
Author Organization [facility] Address [address] [place] [address] Phone Care Team Providers Care Drop Forge Operator Name Role Phone Dee OD, Jair Unavailable Unavailable Procedures Procedure Date Eye Exam & Treatment Refraction Eye Exam & Treatment Eye Exam & Treatment Advance Directives Directive Yes / No Effective Date File Name No Information Encounters Encounter Description Practice Location Reason(s) For Visit Diagnoses Date Provider Providers Copied on Encounter [facility], [address] [place] [address] [address], [place], [place], [address], tel:[phone] SEC [facility] No Information 3-200 9 Dee OD Jair. [facility] , [address], [place], [place], [facility], . tel:[phone] [facility], [address] [place] [address] [address], [place], [place], [address], [place] tel:[phone] SEC [facility] No Information 2-200 8 Dee OD Jair. [address] [facility] , [address], [place], [address], [place]. tel:[phone] [facility], [address] [place] [address] [address], [place], [place], [address], tel:[phone] SEC [facility] No Information 7-200 7 Dee OD Jair. [address] [facility] , [address], [place], [address], [place]. tel:[phone] Family History Family Member Type Diagnosis Age At Onset No Information Payers Payer name Insurance type Covered republican ID Edmundo alexandre(s) Medicaid [facility] [id number] Social History Type Description Quantity Date Captured [...]
--- OUTSIDE RECORDS SUMMARY | 2009-03-01 05:15 | XMS_ITS | Continuity of Care Document ---
Author Organization [facility] Address [address] [place] [address] Phone Care Team Providers Care Mineralogy Teacher Name Role Phone Dee OD, Jair Unavailable Unavailable Procedures Procedure Date Eye Exam & Treatment Refraction Eye Exam & Treatment Eye Exam & Treatment Advance Directives Directive Yes / No Effective Date File Name No Information Encounters Encounter Description Practice Location Reason(s) For Visit Diagnoses Date Provider Providers Copied on Encounter [facility], [address] [place] [address] [address], [place], [place], [address], tel:[phone] SEC [facility] No Information 3-200 9 Dee OD Jair. [facility] , [address], [place], [place], [facility], . tel:[phone] [facility], [address] [place] [address] [address], [place], [place], [address], [place] tel:[phone] SEC [facility] No Information 2-200 8 Dee OD Jair. [address] [facility] , [address], [place], [address], [place]. tel:[phone] [facility], [address] [place] [address] [address], [place], [place], [address], tel:[phone] SEC [facility] No Information 7-200 7 Dee OD Jair. [address] [facility] , [address], [place], [address], [place]. tel:[phone] Family History Family Member Type Diagnosis Age At Onset No Information Payers Payer name Insurance type Covered alliance party ID Edmundo alexandre(s) Medicaid [facility] [id number] Social History Type Description Quantity Date Captured [...]
--- OUTSIDE RECORDS SUMMARY | 2009-03-01 05:15 | XMS_ITS | Continuity of Care Document ---
Author Organization [facility] Address [address] [place] [address] Phone Care Team Providers Care Leaf Binner Name Role Phone Dee OD, Jair Unavailable Unavailable Procedures Procedure Date Eye Exam & Treatment Refraction Eye Exam & Treatment Eye Exam & Treatment Advance Directives Directive Yes / No Effective Date File Name No Information Encounters Encounter Description Practice Location Reason(s) For Visit Diagnoses Date Provider Providers Copied on Encounter [facility], [address] [place] [address] [address], [place], [place], [address], tel:[phone] SEC [facility] No Information 3-200 9 Dee OD Jair. [facility] , [address], [place], [place], [facility], . tel:[phone] [facility], [address] [place] [address] [address], [place], [place], [address], [place] tel:[phone] SEC [facility] No Information 2-200 8 Dee OD Jair. [address] [facility] , [address], [place], [address], [place]. tel:[phone] [facility], [address] [place] [address] [address], [place], [place], [address], tel:[phone] SEC [facility] No Information 7-200 7 Dee OD Jair. [address] [facility] , [address], [place], [address], [place]. tel:[phone] Family History Family Member Type Diagnosis Age At Onset No Information Payers Payer name Insurance type Covered constitution party ID Edmundo alexandre(s) Medicaid [facility] [id number] Social History Type Description Quantity Date Captured [...]
--- OUTSIDE RECORDS SUMMARY | 2009-03-01 05:15 | XMS_ITS | Continuity of Care Document ---
Author Organization [facility] [place] [address] [place] [address] Phone Care Team Providers Care Director Dietetics Department Name Role Phone Dee OD, Jair Unavailable Unavailable Procedures Procedure Date Eye Exam & Treatment Refraction Eye Exam & Treatment Eye Exam & Treatment Advance Directives Directive Yes / No Effective Date File Name No Information Encounters Encounter Description Practice Location Reason(s) For Visit Diagnoses Date Provider Providers Copied on Encounter [facility], [address] [place] [address] [address], [place], [place], [address], tel:[phone] SEC [facility] No Information 3-200 9 Dee OD Jair. [facility] , [address], [place], [place], [facility], . tel:[phone] [facility], [address] [place] [address] [address], [place], [place], [address], [place] tel:[phone] SEC [facility] No Information 2-200 8 Dee OD Jair. [address] [facility] , [address], [place], [address], [place]. tel:[phone] [facility], [address] [place] [address] [address], [place], [place], [address], tel:[phone] SEC [facility] No Information 7-200 7 Dee OD Jair. [address] [facility] , [address], [place], [address], [place]. tel:[phone] Family History Family Member Type Diagnosis Age At Onset No Information Payers Payer name Insurance type Covered alliance party ID Edmundo alexandre(s) Medicaid [facility] [id number] Social History Type Description Quantity Date Captured [...]
--- OUTSIDE RECORDS SUMMARY | 2009-03-01 05:15 | XMS_ITS | Continuity of Care Document ---
Author Organization [facility] Address [address] [place] [address] Phone Care Team Providers Care Diesel Locomotive Firer Name Role Phone Dee OD, Jair Unavailable Unavailable Procedures Procedure Date Eye Exam & Treatment Refraction Eye Exam & Treatment Eye Exam & Treatment Advance Directives Directive Yes / No Effective Date File Name No Information Encounters Encounter Description Practice Location Reason(s) For Visit Diagnoses Date Provider Providers Copied on Encounter [facility], [address] [place] [address] [address], [place], [place], [address], tel:[phone] [facility] No Information 3-200 9 Dee OD Jair. [facility] , [address], [place], [place], [facility], . tel:[phone] [facility], [address] [place] [address] [address], [place], [place], [address], [place] tel:[phone] [facility] No Information 2-200 8 Dee OD Jair. [address] [facility] , [address], [place], [address], [place]. tel:[phone] [facility], [address] [place] [address] [address], [place], [place], [address], tel:[phone] SEC [facility] No Information 7-200 7 Dee OD Jair. [address] [facility] , [address], [place], [address], [place]. tel:[phone] Family History Family Member Type Diagnosis Age At Onset No Information Payers Payer name Insurance type Covered alliance party ID Edmundo alexandre(s) Medicaid [facility] [id number] Social History Type Description Quantity Date Captured [...]
--- OUTSIDE RECORDS SUMMARY | 2009-03-01 05:15 | XMS_ITS | Continuity of Care Document ---
Author Organization [facility] Address [address] [place] [address] Phone Care Team Providers Care Retail Product Advisor Name Role Phone Dee OD, Jair Unavailable Unavailable Procedures Procedure Date Eye Exam & Treatment Refraction Eye Exam & Treatment Eye Exam & Treatment Advance Directives Directive Yes / No Effective Date File Name No Information Encounters Encounter Description Practice Location Reason(s) For Visit Diagnoses Date Provider Providers Copied on Encounter [facility], [address] [place] [address] [address], [place], [place], [address], tel:[phone] SEC [facility] No Information 3-200 9 Dee OD Jair. [facility] , [address], [place], [place], [facility], . tel:[phone] [facility], [address] [place] [address] [address], [place], [place], [address], [place] tel:[phone] SEC [facility] No Information 2-200 8 Dee OD Jair. [address] [facility] , [address], [place], [address], [place]. tel:[phone] [facility], [address] [place] [address] [address], [place], [place], [address], tel:[phone] SEC [facility] No Information 7-200 7 Dee OD Jair. [address] [facility] , [address], [place], [address], [place]. tel:[phone] Family History Family Member Type Diagnosis Age At Onset No Information Payers Payer name Insurance type Covered alliance party ID Edmundo alexandre(s) Medicaid [facility] [id number] Social History Type Description Quantity Date Captured [...]
--- OUTSIDE RECORDS SUMMARY | 2009-03-01 05:15 | XMS_ITS | Continuity of Care Document ---
Author Organization [facility] Address [address] [place] [address] Phone Care Team Providers Care Supervisor Nutritional Yeast Name Role Phone Dee OD, Jair Unavailable Unavailable Procedures Procedure Date Eye Exam & Treatment Refraction Eye Exam & Treatment Eye Exam & Treatment Advance Directives Directive Yes / No Effective Date File Name No Information Encounters Encounter Description Practice Location Reason(s) For Visit Diagnoses Date Provider Providers Copied on Encounter [facility], [address] [place] [address] [address], [place], [place], [address], tel:[phone] SEC [facility] No Information 3-200 9 Dee OD Jair. [facility] , [address], [place], [place], [facility], . tel:[phone] [facility], [address] [place] [address] [address], [place], [place], [address], [place] tel:[phone] SEC [facility] No Information 2-200 8 Dee OD Jair. [address] [facility] , [address], [place], [address], [place]. tel:[phone] [facility], [address] [place] [address] [address], [place], [place], [address], tel:[phone] SEC [facility] No Information 7-200 7 Dee OD Jair. [address] [facility] , [address], [place], [address], [place]. tel:[phone] Family History Family Member Type Diagnosis Age At Onset No Information Payers Payer name Insurance type Covered libertarian ID Edmundo alexandre(s) Medicaid [facility] [id number] Social History Type Description Quantity Date Captured [...]
--- OUTSIDE RECORDS SUMMARY | 2009-03-01 05:15 | XMS_ITS | Continuity of Care Document ---
Author Organization [facility] Address [address] [place] [address] Phone Care Team Providers Care Nuclear Reactor Engineer Name Role Phone Dee OD, Jair Unavailable Unavailable Procedures Procedure Date Eye Exam & Treatment Refraction Eye Exam & Treatment Eye Exam & Treatment Advance Directives Directive Yes / No Effective Date File Name No Information Encounters Encounter Description Practice Location Reason(s) For Visit Diagnoses Date Provider Providers Copied on Encounter [facility], [address] [place] [address] [address], [place], [place], [address], tel:[phone] SEC [facility] No Information 3-200 9 Dee OD Jair. [facility] , [address], [place], [place], [facility]], . tel:[phone] [facility], [address] [place] [address] [address], [place], [place], [address], [place] tel:[phone] [address] [facility] No Information 2-200 8 Dee OD Jair. [address] [facility] , [address], [place], [address], [place]. tel:[phone] [facility], [address] [place] [address] [address], [place], [place], [address], tel:[phone] [facility] No Information 7-200 7 Dee OD Jair. [address] [facility] , [address], [place], [address], [place]. tel:[phone] Family History Family Member Type Diagnosis Age At Onset No Information Payers Payer name Insurance type Covered constitution party ID Edmundo alexandre(s) Medicaid [facility] [id number] Social History Type Description Quantity Date Captured [...]
--- OUTSIDE RECORDS SUMMARY | 2009-03-01 05:15 | XMS_ITS | Continuity of Care Document ---
Author Organization [facility] Address [address] [place] [address] Phone Care Team Providers Care Beach Patrol Lieutenant Name Role Phone Dee OD, Jair Unavailable Unavailable Procedures Procedure Date Eye Exam & Treatment Refraction Eye Exam & Treatment Eye Exam & Treatment Advance Directives Directive Yes / No Effective Date File Name No Information Encounters Encounter Description Practice Location Reason(s) For Visit Diagnoses Date Provider Providers Copied on Encounter [facility], [address] [place] [address] [address], [place], [place], [address], tel:[phone] SEC [facility] No Information 3-[address] [facility] , [address], [place], [place], [facility], . tel:[phone] [facility], [address] [place] [address] [address], [place], [place], [address], [place] tel:[phone] SEC [facility] No Information 2-200 8 Dee OD Jair. [address] [facility] , [address], [place], [address], [place]. tel:[phone] [facility], [address] [place] [address] [address], [place], [place], [address], tel:[phone] SEC [facility] No Information 7-200 7 Dee OD Jair. [address] [facility] , [address], [place], [address], [place]. tel:[phone] Family History Family Member Type Diagnosis Age At Onset No Information Payers Payer name Insurance type Covered constitution party ID Edmundo alexandre(s) Medicaid [facility] [id number] Social History Type Description Quantity Date Captured [...]
--- OUTSIDE RECORDS SUMMARY | 2009-03-01 05:15 | XMS_ITS | Continuity of Care Document ---
Author Organization [facility] Address [address] [place] [address] Phone Care Team Providers Care Medical Program Specialist Name Role Phone Dee OD, Jair Unavailable Unavailable Procedures Procedure Date Eye Exam & Treatment Refraction Eye Exam & Treatment Eye Exam & Treatment Advance Directives Directive Yes / No Effective Date File Name No Information Encounters Encounter Description Practice Location Reason(s) For Visit Diagnoses Date Provider Providers Copied on Encounter [facility], [address] [place] [address] [address], [place], [place], [address], tel:[phone] [facility] No Information 3-200 9 Dee OD Jair. [facility] , [address], [place], [place], [facility], . tel:[phone] [facility], [address] [place] [address] [address], [place], [place], [address], [place] tel:[phone] [facility] No Information 2-200 8 Dee OD Jair. [address] [facility] , [address], [place], [address], [place]. tel:[phone] [facility], [address] [place] [address] [address], [place], [place], [address], tel:[phone] [place] [facility] No Information 7-200 7 Dee OD Jair. [address] [facility] , [address], [place], [address], [place]. tel:[phone] Family History Family Member Type Diagnosis Age At Onset No Information Payers Payer name Insurance type Covered constitution party ID Edmundo alexandre(s) Medicaid [facility] [id number] Social History Type Description Quantity Date Captured [...]
--- OUTSIDE RECORDS SUMMARY | 2009-03-01 05:15 | XMS_ITS | Continuity of Care Document ---
Author Organization [facility] Address [address] [place] [address] Phone Care Team Providers Care Utility Agent Name Role Phone Dee OD, Jair Unavailable Unavailable Procedures Procedure Date Eye Exam & Treatment Refraction Eye Exam & Treatment Eye Exam & Treatment Advance Directives Directive Yes / No Effective Date File Name No Information Encounters Encounter Description Practice Location Reason(s) For Visit Diagnoses Date Provider Providers Copied on Encounter [facility], [address] [place] [address] [address], [place], [place], [address], tel:[phone] SEC [facility] No Information 3-200 9 Dee OD Jair. [facility] , [address], [place], [place], [facility], . tel:[phone] [facility], [address] [place] [address] [address], [place], [place], [address], [place] tel:[phone] SEC [facility] No Information 2-200 8 Dee OD Jair. [address] [facility] , [address], [place], [address], [place]. tel:[phone] [facility], [address] [place] [address] [address], [place], [place], [address], tel:[phone] SEC [facility] No Information 7-200 7 Dee OD Jair. [address] [facility] , [address], [place], [address], [place]. tel:[phone] Family History Family Member Type Diagnosis Age At Onset No Information Payers Payer name Insurance type Covered constitution party ID Edmundo alexandre(s) Medicaid [facility] [id number] Social History Type Description Quantity Date Captured [...]
--- OUTSIDE RECORDS SUMMARY | 2009-03-01 05:15 | XMS_ITS | Continuity of Care Document ---
Author Organization [facility] Address [address] [place] [address] Phone Care Team Providers Care Awnings Mechanic Name Role Phone Dee OD, Jair Unavailable Unavailable Procedures Procedure Date Eye Exam & Treatment Refraction Eye Exam & Treatment Eye Exam & Treatment Advance Directives Directive Yes / No Effective Date File Name No Information Encounters Encounter Description Practice Location Reason(s) For Visit Diagnoses Date Provider Providers Copied on Encounter [facility], [address] [place] [address] [address], [place], [place], [address], tel:[phone] SEC [facility] No Information 3-200 9 Dee OD Jair. [facility] , [address], [place], [place], [facility], . tel:[phone] [facility], [address] [place] [address] [address], [place], [place], [address], [place] tel:[phone] SEC [facility] No Information 2-200 8 Dee OD Jair. [address] [facility] , [address], [place], [address], [place]. tel:[phone] [facility], [address] [place] [address] [address], [place], [place], [address], tel:[phone] SEC [facility] No Information 7-200 7 Dee OD Jair. [address] [facility] , [address], [place], [address], [place]. tel:[phone] Family History Family Member Type Diagnosis Age At Onset No Information Payers Payer name Insurance type Covered alliance party ID Edmundo alexandre(s) Medicaid [facility] [id number] Social History Type Description Quantity Date Captured [...]
--- OUTSIDE RECORDS SUMMARY | 2009-03-01 05:15 | XMS_ITS | Continuity of Care Document ---
Author Organization [facility] Address [address] [place] [address] Phone Care Team Providers Care Data Warehouse Administrator Name Role Phone Dee OD, Jair Unavailable Unavailable Procedures Procedure Date Eye Exam & Treatment Refraction Eye Exam & Treatment Eye Exam & Treatment Advance Directives Directive Yes / No Effective Date File Name No Information Encounters Encounter Description Practice Location Reason(s) For Visit Diagnoses Date Provider Providers Copied on Encounter [facility], [address] [place] [address] [address], [place], [place], [address], tel:[phone] SEC [facility] No Information 3-200 9 Dee OD Jair. [facility] , [address], [place], [place], [facility], . tel:[phone] [facility], [address] [place] [address] [address], [place], [place], [address], [place] tel:[phone] SEC [facility] No Information 2-200 8 Dee OD Jair. [address] [facility] , [address], [place], [address], [place]. tel:[phone] [facility], [address] [place] [address] [address], [place], [place], [address], tel:[phone] SEC [facility] No Information 7-200 7 Dee OD Jair. [address] [facility] , [address], [place], [address], [place]. tel:[phone] Family History Family Member Type Diagnosis Age At Onset No Information Payers Payer name Insurance type Covered alliance party ID Edmundo alexandre(s) Medicaid [facility] [id number] Social History Type Description Quantity Date Captured [...]
[2025-08-17 09:44] VITALS: BP 147/112; PULSE 90; RESP 17; TEMP 37.1; O2SAT 97
--- NOTE | 2025-08-17 10:15 | ED_ITS ---
HPI - Back Pain/Injury General Chief Complaint: Back Pain/Injury Stated Complaint: back pain Time Seen by Provider: 08/17/25 09:59 History of Present Illness HPI Narrative: Pt was at work and lifted 50 lb box and felt pain in low back. Pt says pain is achy. 7-8/10. Worse with movement. Has not taken meds. Pain is bilateral. No numbness or tingling. No problems with bladder or bowels. Related Data Allergies Allergy/AdvReac Type Severity Reaction Status Date / Time No Known Allergies Allergy Verified 08/17/25 09:34 Review of Systems Review of Systems: All systems reviewed & are unremarkable except as noted in HPI and below PMFSH Past Medical History Medical History Migraine Headache GERD (gastroesophageal reflux disease) Anxiety History of nephrolithotomy with removal of calculi (~2021) Patient denies significant medical history Family History Family History Mother Depression Depression with anxiety Sibling Depression Depression with anxiety Grandparent Depression Other Heart disease Hypertension Social History Social History Smoking status: Current some day smoker Tobacco type: e-cigarettes/vaping Additional smoking assessment comments: vaping for 2 years Alcohol intake: never Substance use type: does not use Lack of Transportation: No Lack of Food: Never True Current Housing: I Have Housing Concerned About Future Housing: No Difficulty Paying Gas/Electric Bills: No Difficulty Paying for Meds: No Currently Unemployed: No Education: High School Diploma/GED Difficulty w/ Childcare or Family Care: No Living arrangements: with family Occupation/Education: occupation 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 dilaudid 0.5 mg IM given and pt feels better. home on naprosyn, norco and robaxin with work restricitons. Differential Diagnosis Differential diagnosis: Likely lumbar radiculopathy, sciatica and strain of lumbar region Discharge Plan Discharge Clinical Impression: Strain of lumbar region Patient Disposition: Home Condition: Improved Instructions: Antibiotic Form, Acute Low Back Pain (ED) Patient Language: Venezuelan Prescriptions: New naproxen [Naprosyn] 500 mg tablet 500 mg PO BID Qty: 20 0RF methocarbamol 750 mg tablet 750 mg PO TID Qty: 20 0RF hydrocodone-acetaminophen 5-325 mg tablet 1 tablet PO Q6H PRN (Reason: pain) Qty: 14 0RF No Action escitalopram oxalate [Lexapro] 20 mg tablet 20 mg PO DAILY Qty: 90 3RF Follow-up/Referrals: Jarrell Edwards DO [Primary Care Provider, Internal Medicine] Stand Alone Forms: Work/School Release IP
[2025-08-17] MEDS: KETOROLAC 30 MG/ML VIAL (*BKC) IM (10:24)
--- NOTE | 2025-08-17 11:51 | PC.NURSE ---
Pt mother came to nurses station asking for update. EDP made aware and will go see pt.
[2025-08-17] MEDS: HYDROmorphone HCL INJ (*CRX) 1 MG/ML SYR 0.5 MG IV PUSH (12:03)
--- OUTSIDE RECORDS SUMMARY | 2025-08-17 12:39 | XMS_ITS | Clinical Summary ---
Author Organization [facility] Address [address] [place] [address] Care Team Providers Care Cap Lining Machine Operator Name Role Phone No, Physician Primary Care Provider [phone] Steve Yates MD Unavailable Allergies No known active allergies Medications naproxen (NAPROSYN) 375 mg tablet Take 1 tablet (375 mg total) by mouth 2 (two) times a day with meals P.r.n. pain. Collaborating physician Jarrell Ch MD 20 tablet 08/11/20 Active Additional Information Patient not taking.Reported on 04/25/2022 cyclobenzaprine (FLEXERIL) 5 mg tablet Take 1 tablet (5 mg total) by mouth 2 (two) times a day as needed (Take as directed to relax muscles) Collaborating physician Jarrell Ch MD 20 tablet 08/11/20 Active Additional Information Patient not taking.Reported on 04/25/2022 mupirocin (BACTROBAN) 2 % ointmentIndication s:Skin infection Apply topically 3 (three) times a day 22 g 04/25/20 Active Additional Information Patient not taking.Reported on 02/26/2025 escitalopram (LEXAPRO) 20 mg tablet Take 1 tablet (20 mg total) by mouth daily Active neomycin-polymyxin -dexAMETHasone (MAXITROL) 3.5mg/mL-10,000 unit/mL-0.1 % ophthalmic suspensionIndicati ons:Acute conjunctivitis of left eye, unspecified acute conjunctivitis type,Corneal abrasion, left, initial encounter Administer 1 drop into the left eye 4 (four) times a day Collaborating physician Jarrell Ch MD 5 mL 02/27/20 25 Active acetaminophen-code ine (TYLENOL with CODEINE #4) 300-60 mg per tabletIndications: Acute conjunctivitis of left eye, unspecified acute conjunctivitis type,Corneal abrasion, left, initial encounter Take 1 tablet by mouth every 6 (six) hours as needed for pain Take as directed with food to treat eye pain. Collaborating physician Jarrell Ch MD 6 tablet 02/27/20 25 Active Active Problems Problem Noted Date Diagnosed Date Acute conjunctivitis of left eye 02/26/2025 Corneal abrasion, left, initial encounter 2024 Lumbar strain, initial encounter 08/11/2021 Bilateral sciatica 08/11/2021 Kidney stone 04/13/2021 Overview (04/13/2021): Added automatically from request for surgery [id number] Right ureteral stone 04/04/2021 Class 3 severe [...] making you feel afraid or unsafe? Denies 02/26/2025 Comments No Sex and Gender Information Value Date Recorded Sex Assigned at Not on file Legal Sex Female 3:39 AM CDT Gender Identity Not on file Sexual Orientation Not on file Last Filed Vital Signs Vital Sign Reading Time Taken Comments Blood Pressure 146/79 02/26/2025 7:22 PM CDT Pulse 95 02/26/2025 7:22 PM CDT Temperature 36.9 C (98.5 F) 02/26/2025 7:22 PM CDT Respiratory Rate 18 02/26/2025 7:22 PM CDT Oxygen Saturation 100% 02/26/2025 7:22 PM CDT Inhaled Oxygen Concentration - - Weight 111.1 kg (245 lb) 02/26/2025 7:22 PM CDT Height 162.6 cm (5' 4) 02/26/2025 7:22 PM CDT Body Mass Index 42.05 02/26/2025 7:22 PM CDT Plan of Treatment Health Maintenance Due Date Last Done Comments Cervical Cancer Screening 2000 Depression Screening 2000 Hepatitis C Screening 2000 Regular Well Visit/Exam 18-64 2017 DTaP/Tdap/Td Vaccine (7 - Td or Tdap) 05/16/2021 05/16/2011, 01/21/2005, 04/02/2001, Additional history exists Influenza Vaccine (#1) 2025 , 07/05/2014, 09/08/2013, Additional history exists Hepatitis B Screening Completed 11/09/2001 , 06/26/2000, 03/25/2000 Varicella Vaccines Completed 05/16/2011, 0 10/13/2000, 10/13/2000 Pneumococcal vaccine <65 Completed 012, 12/23/2000, 10/13/2000, Additional history exists HPV Vaccines Completed 09/08/2013, 08/0 04/2013, 01/26/2013 Medical Devices Implanted Type Area Bologna Maker Device Identifier Shelf Expiration Date Model / Serial / Lot [employer] Deuce 180-222 Contour 6fr 24cm Large Inner Lumen Low Profile Bladder Jair Taper Latex Free - [id number] Implanted:Qty: 1 on 04/05/2021 by Steve Yates MD at [facility] Explanted:04/26 by Steve Yates MD (Quantity not on file) Right: Ureter [employer] Deuce 12/01/2023 180-222 / / [id number] Explanted Type Area Bologna Maker Device Identifier Shelf Expiration Date Model / Serial / Lot [employer] Deuce 180-223 Contour 6fr 26cm Large Inner Lumen Low Profile Bladder Jair Taper Latex Free - [id number] Implanted:Qty: 1 on 04/26/2021 by Steve Yates MD at [facility] Explanted:Qty: 1 on 04/30/2021 Right: [facility] [employer] [facility] 02/01/2024 180-223 / / [id number] Insurance [employer] [place] Member Subscriber Plan / Payer (Ef fective 2021-Present) Name:Stefany Kauffman Relation to Subscriber:Other Relationship Name:JEANNA DILLON Date of :1981 (Home) [email or web address] [facility] [address] [place], [place] [id number] Payer ID:[id number] (NAIC) Type: OTHER Address: [address] [place] [phone] [employer] [place] [employer] [facility] CIGNA ALLEGIANCE Advance Directives For more information, please contact: [phone] * Full Code (Latest Code Status on File) Date Activated Date Inactivated Comments 04/04/2021 7:50 AM 04/05/2021 10:18 PM Care Teams Cap Lining Machine Operator Relationship Specialty Start Date End Date No, Physician PCP - General 04/04/21 Steve Yates MD Consulting Physician Urology 04/05/21
--- OUTSIDE RECORDS SUMMARY | 2025-08-17 12:39 | XMS_ITS | Clinical Summary ---
Author Organization [facility] [employer] [place] Address [address] [place] [phone] Care Team Providers Care Congressional Assistant Name Role Phone Unavailable Primary Care Provider Unavailabl e Active Problems No known active problems Encounters Date Type Department Care Team Description 07/19/2025 External Device Data [facility]STRACTION Provider, Abstract 06/14/2025 External Device Data [facility] Provider, Abstract from Last 3 Months Social History Tobacco Use Types Packs/Day Years Used Date Smoking Tobacco: Never Assessed Comments Unknown Sex and Gender Information Value Date Recorded Sex Assigned at Not on file Legal Sex Female 2:21 PM CDT Gender Identity Not on file Sexual Orientation Not on file Last Filed Vital Signs Vital Sign Reading Time Taken Comments Blood Pressure 126/84 03/28/2025 2:33 PM CDT Pulse - - Temperature - - Respiratory Rate - - Oxygen Saturation - - Inhaled Oxygen Concentration - - Weight 106.6 kg (235 lb) 03/28/2025 2:33 PM CDT Height 162.6 cm (5' 4) 03/28/2025 2:33 PM CDT Body Mass Index 40.34 03/28/2025 2:33 PM CDT Plan of Treatment Health Maintenance Due Date Last Done Comments HPV VACCINES (1 - 3-dose series) 2014 DTAP/TDAP/TD VACCINES (1 - Tdap) 2018 HEPATITIS B VACCINES (1 of 3 - 19+ 3-dose series) 08/30 CERVICAL CANCER SCREENING 2020 HPV/Cotest (21-29) 2020 PAP SMEAR 2020 INFLUENZA VACCINE (#1) 2025
--- OUTSIDE RECORDS SUMMARY | 2025-08-17 16:19 | XMS_ITS | Data Portability ---
Author Organization [facility] Address [address] [place] [address] [place] [address] Care Team Providers Care Certified Meeting Professional Name Role Phone BRITTON FLOOD Primary Care Provider [phone] Assessment No assessment recorded. Plan of Treatment Reminders Order Date Submit Date Provider Last Modified By Organization Details Last Modified Time Details Appointments None recorded. Lab test, urine 2024 025 [facility], [facility] [address], [address], [place], [address], 5 15:34:04 pap, IG + reflex HPV if ASC-U - if positive HPV run subtyping 16,18/45 add STI to pap GC/CT/Tric h 2024 025 [facility] (Lab), [address], [place], [address], 5 20:20:18 Referral None recorded. Procedures None recorded. Surgeries None recorded. Imaging None recorded. Medication Orders Nexplanon 68 mg subdermal implant 2024 025 [place] [address] [id number], [address], [place], [place], [id number], 5 18:56:09 Nexplanon 68 mg subdermal implant 2024 025 [facility], [address] [place] [address], [address], [place], [place], [id number], 10:36:00 Patient TargetsNo targets recorded. Patient InstructionsNo instructions recorded. Reason for Referral None Reported. Results Created Date Observation Date Name Description Value Unit Range Abnormal Flag Note LastModifiedBy Organization Detail LastModifiedTime 02/11/2002/10/2025 IMAGE GUIDE D PAP, REFLE X HPV IF ASCUS ONLY image guided Pap, reflex HPV ASCUS only SEE RESULT S BELOW CASE REPOR T: Cytol ogy Gynec ologi ricki Repor t Case: [id number] Autho jackie g Provi joe: Melva Abbasi, ARELY Colle cted: 02/10 1010 Order ing Locat ion: [place] Patho log[facility] Recei joan: 02/11 0859 First Scree n: Lucila Manuel, CT Rescr een: Starla Langford ed, CT Speci men: Scree ruth Pap - Image d, Cervi x STATE MENT OF ADEQU ACY: Satis facto ry for evalu ation Trans forma tion zone compo nent absen t The absen ce of an endoc ervic al compo nent was confi rmed by an addit ional scree ner. ----- ----- ----- ----- ----- ----- ----- ----- ----- ----- ----- ----- ----- ----- ----- ----- ----- ---- FINAL DIAGN OSIS: Negat dannie for Intra epith elial Chriss dugan or Harsh vanegas (NIL) . Elect sheryl eddy d by Starla Langford ed, CT on 2024 at 1918 CDT ----- ----- ----- ----- ----- ----- ----- ----- ----- ----- ----- ----- ----- ----- ----- ----- ----- ---- COMME NT: This speci men was revie wed by a Cytot echno logis t and/o r Patho logis t (as indic ated in this repor t) after evalu ation using the Thinp rep Imagi ng Syste m. CLINI RICKI INFOR MATIO N: Menst rual Statu s: LMP (if appli cable ): Clini ricki Histo ry/Pr eviou s Pap: Type of Neopl yannick (if appli cable ): Signi fican t Clini ricki Findi ngs: Other Histo ry: Hormo zoila (if appli cable ): PAP EDUCA FERNANDEZ L NOTE: The Pap Test is a scree ruth test with an inher ent false negat dannie rate. Liqui d-bas ed sampl ing may decre ase, but will not elimi vasquez, false negat dannie resul ts. A negat dannie resul t does not precl ude the prese nce and/o r devel opmen t of disea se, since the prese nce of abnor mal cells in the sampl e depen ds on the locat ion of the lesio n and sampl ing techn ique. Danya nued regul ar scree ruth is the best metho d of cance r preve ntion . If repor alejandra cytol ogic findi ng do not corre late with physi ricki and/o r histo rical findi ngs, furth er inves tigat ion is recom shirlene d, as clini kareem evans nted. Not Available [facility] (Lab) [address], [place], [address], 02/15/2025 20:20:18 02/11/20 25 02/10/2025 CT/GC AND TRICH OMONA S VAGIN SUNG (RRNA ), THINP REP VIAL CT/GC and trichomonas vaginalis (rrna), thinprep SEE RESULT S BELOW negati ve CHLAM YDIA TRACH OMATI S, PCR: Negat dannie NEISS ERIA GONOR RHOEA E, PCR: Negat adnnie TRICH OMONA S VAGIN SUNG RIBOS OMAL RNA (RRNA ): Negat dannie Not Available [facility] (Lab) [address], [place], [address], 02/15/2025 20:20:19 03/22/20 25 03/22/2025 pregn orion test, urine HCG negati ve Not Available [facility] [address], [place], [address], 03/22/2025 15:33:57 Result Notes None recorded. 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 14:45:[address] Concept Completed 201606/29/2021 Encounter for surveilla nce of other contracep tives;Rec orded Elsewhere : No Locati on: [facility] So urce: EHR Chron ic: N Practic e ID: [id number] Bill able Time: 11:00:00 AM Tierra farias [facility] 14:45:21 Pregnanc y test negative [id number] Completed 201606/29/2021 Encounter for test, result negative; Recorded Elsewhere : No Locati on: [facility] So urce: EHR Chron ic: N Practic e ID: [id number] Bill able Time: 11:00:00 AM Tierra farias [facility] 14:45:16 Procedur e Completed 201606/29/2021 Enctr srvlnc implantab le subdermal contracep tive;Prac oanh ID: [id number] Tierra farias [facility] 14:45:18 Syphilis test finding [id number] Completed 201608/03/2021 Encounter for STD screening ;Recorded Elsewhere : No Locati on: [facility] So urce: EHR Chron ic: N Practic e ID: [id number] Bill able Time: 01:15:00 PM Rose Barr [facility], [facility] 10:58:56 Acute vaginiti s [id number] Completed 201606/29/2021 Vaginitis ;Recorded Elsewhere : No Locati on: [facility] So urce: EHR Chron ic: N Practic e ID: [id number] Bill able Time: 01:15:00 PM Tierra Aponte null, [facility] 14:45:14 Problem Notes None recorded. Procedures Surgical History Date Name Laterality Status Provider Name and Address Organization Details Recorded Time 025 Control Implant Insertion completed PATRICIA Jarrett [address], [place], [address], [facility] 03/23/2025 09:08:58 021 Control Implant Removal completed Andrew Lombardo MD [address], [place], [address], [facility] 06/30/2021 08:22:58 021 ureterorenoscopy with fragmentation and removal of calculus of kidney completed Elena Mendoza [facility] 09/06/2021 15:55:45 Imaging Results None recorded. Procedure Notes None recorded. Medical Equipment None Reported. Allergies No known drug allergies Medications Name Sig Start Date Stop Date Status Note LastModified by Organization Details LastModified Time naproxen 375 mg tablet TAKE 1 TABLET BY MOUTH TWICE DAILY WITH MEALS NEEDED FOR PAIN 02/10 completed Not Available Not Available Not Available ondansetr on HCl 4 mg tablet TAKE 1 TABLET BY MOUTH EVERY 8 HOURS NEEDED 06/29 completed Not Available Not Available Not Available Metrogel Vaginal 0.75 % (37.5 mg/5 gram) insert 1 applicat orful by vaginal route every day at bedtime for 5 nights 07/21 completed Prescrib ed Elsewher e: No Locat ion: [facility] M odify By: konstantin givens DateTime : 02/27/20 01:02:38 PM Not Available Not Available Not Available neomycin- polymyxin -dexameth 3.5 mg/mL-10, 000 unit/mL-0 .1% eye drops ADMINIST ER 1 DROP INTO THE LEFT EYE 4 TIMES A DAY 03/22 completed Not Available Not Available Not Available acetamino phen 300 mg-codein e 60 mg tablet TAKE 1 TABLET BY MOUTH EVERY 6 HOURS NEEDED FOR PAIN DIRECTED WITH FOOD TO TREAT EYE PAIN 03/22 completed Not Available Not Available Not Available doxycycli ne hyclate 100 mg tablet TAKE 1 TABLET BY MOUTH TWICE DAILY 02/10 completed Not Available Not Available Not Available clindamyc in 1 % lotion APPLY TOPICALL Y TO THE AFFECTED AREA DAILY NEEDED 02/10 completed Not Available Not Available Not Available escitalop stephanie 10 mg tablet TAKE 1 TABLET BY MOUTH DAILY FOR 2 WEEKS 02/10 completed Not Available Not Available Not Available escitalop stephanie 20 mg tablet TAKE 1 TABLET BY MOUTH DAILY active Not Available Not Available No t Available cyclobenz aprine 5 mg tablet TAKE 1 TABLET BY MOUTH TWICE DAILY NEEDED TO RELAX MUSCLES DIRECTED 02/10 completed Not Available Not Available Not Available Nexplanon 68 mg subdermal implant Inject 1 implant by subcutan eous route. 2024 active Not Available Not Available Not Avai lable Vitals Date Recorded Body weight Body mass index (BMI) Body height Systolic And Diastolic Provider Name and Address Organization Details Last Updated DateTime 02/10/2025 167901.82 g 41.8 kg/m2 162.56 cm 101/69 mm[Hg] [facility] 02/10/2025 10:10:24 Date Recorded Body height Body mass index (BMI) Body weight Systolic And Diastolic Provider Name and Address Organization Details Last Updated DateTime 03/22/2025 162.56 cm 41 kg/m2 767943.58 g 106/74 mm[Hg] [facility] 03/22/2025 15:06:48 Date Recorded Body height Body mass index (BMI) Body weight Systolic And Diastolic Provider Name and Address Organization Details Last Updated DateTime 06/29/2021 162.56 cm 40.5 kg/m2 020264.8 g 139/79 mm[Hg] Tierra Aponte [facility] 06/29/2021 14:44:50 Social History Question Answer Notes LastModified by Organizat ion Details LastModified Time Tobacco Smoking Status Never Smoker Tierra Aponte dinora [facility] 06/29/2021 14:46:45 Do You Have An Advance Directive? No Information n ot available 06/29/2021 Are You Blind Or Do You Have Difficulty Seeing? No Information n ot available 06/29/2021 What Is Your Level Of Caffeine Consumption? Occasional Information not available 06/29/2021 In The 14 Days Before Symptom Onset, Have You Had Close Contact With A Laboratory-confirm ed COVID-19 While That Case Was Ill? No Information n ot available 06/29/2021 In The 14 Days Before Symptom Onset, Have You Had Close Contact With A Person Who Is Under Investigation For COVID-19 While That Person Was Ill? No Information not available 06/29/2021 Have You Been To An Area Known To Be High Risk For COVID-19? No Information not available 06/29/2021 Are You Deaf Or Do You Have Serious Difficulty Hearing? No Information not available 06/29/2021 What Type Of Diet Are You Following? REGULAR Information n ot available 06/29/2021 What Is The Highest Grade Or Level Of School You Have Completed Or The Highest Degree You Have Received? [id number] Information not available 06/29/2021 Are There Any Guns Present In Your Home? Yes Information not available 06/29/2021 Do You Use Protection During Sex? Usually Information not available 06/29/2021 Do You Use Your Seat Belt Or Car Seat Routinely? Yes Information not available 06/29/2021 Do You Have Smoke And Carbon Monoxide Detectors In Your Home? Yes Information not available 06/29/2021 How Much Tobacco Do You Smoke? No Information not available 06/29/2021 Do You Use Sunscreen Routinely? Yes Information not available 06/29/2021 Have You Used IV Drugs? No Information not available 06/29/2021 Sex: Unknown Functional Status Question Answer Note LastModified by Organizat ion Details LastModified Time Do you use any illicit or recreational drugs? No Information not available 06/29/2021 What is your level of alcohol consumption? Occasional Information not available 06/29/2021 Are you able to walk independently without assistance or assistive devices? 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 Occasional Information not available 06/29/2021 Mental Status Question Answer Note LastModified by Organization D etails LastModified Time Do you feel stressed (tense, restless, nervous, or anxious, or unable to sleep at night)? [id number] Information not available 02/10/2025 Family History Relationship Description Onset Age of this Age Resolved Age Notes LastModified by Organization Details LastModified Time Unspecified Relation Family history unknown [email or web address] Not available 2024 09:47:35 Brother Diabetes mellitus Not available 2020 14:45:55 Maternal Grandmother Diabetes mellitus Not available 2020 14:46:08 Maternal Grandmother Hypertensive disorder Not available 2020 14:46:27 Maternal Grandmother Heart disease Not available 2020 14:46:38 Mother Diabetes mellitus Not available 2020 14:46:13 Medical History Condition Response Allergies (Food, seasonal, environmental ) N Other N Breast Cancer N Drug/Latex Allergies/Reactions N Blood Transfusion N Dermatologic Disorders N Lung Disease N Defects or Inherited Disease N Breast Problem N Gestational Diabetes N Hematologic disorders N Anesthesia Complications N History of STI N Deep Vein Thrombosis N Polycystic ovary syndrome N Anxiety Disorder Y Autoimmune disease N Arthritis N Infertility N Polyps N Acid Reflux (GERD) N History of abnormal pap N Cancer N Stroke N Varicosities N Neurologic/Epilepsy N Endometriosis N High Cholesterol N Headaches N Fibromyalgia N Kidney Disease N Heart Problems N Kidney or Bladder Problems N Thyroid Problems N GI Problems N Eating Disorder N Anemia N Art (IVF or FET) N Psychiatric Illness N Ovarian Cancer N Diabetes N Pulmonary (TB, Asthma) N Hepatitis/Liver Disease N No Past Medical History N Eczema N Urinary Tract Infection N Abuse/Domestic Violence N Asthma N Trauma/Violence N Depression/ depression Y Heart Disease N Pre-Eclampsia N Hypertension N Osteoporosis N Thrombophilias N Gynecological History Statement/Question Response Date of Last Mammogram Flow Moderate Date of LMP 03/20/2025 N Was last menstrual period normal Y STIs/STDs N Date of Last Colonoscopy None Desired Control Method None Abnormal Pap N On BCP's at Conception? N Duration of Flow (days) 5 Current Control Method Implant Are cycles usually normal Y Frequency of Cycle (Q days) 28 Sexually Active? Y Menses Monthly Y Date of DEXA bone scan Age of first menstrual cycle 15 Date of Last Pap Smear Sexual Problems? N LMP Definite N Obstetrics History GPAL:G 0 P 0 0 0 0 Past Encounters Encounter ID Performer Location Encounter Start Date Encounter Closed Date Diagnosis/Indication Diagnosis SNOMED-CT Code Diagnosis ICD10 Code Diagnosis IMO Codes Diagnosis Note [id number] Andrew Lombardo MD [facility] [address] [address] 06/29/2021 14:17:21 07/02/2021 15:07:30 Contraception care management 333974934 Z30.9 Nexplanon was removed without complicati on. [id number] PATRICIA Jarrett [facility] [address] [address] 02/10/2025 09:45:32 02/10/2025 11:28:37 Gynecologic examination 76084471 Z01.069 [id number] WWEPap - done todaySTI screen - gc/ct/tric h testing added to pap per pt requestRou tatianna labs - PCPRTC in 1 yr or sooner if needed It is strongly advised to have an annual flu shot and up can obtain at most pharmacies . If you have not had a TDap shot in the last 10 years you should obtain one as well. Discussed with patient & provided with informatio n regarding the HPV vaccine if applicable . Encourage safe sexual practices, to use condoms and limit partners if not already in a monogamous relationsh ip. Do monthly self breast exams. BRCA testing is now available for patients with strong genetic history of female cancer. If interested contact the office. Engage in regular exercise. Avoid tobacco and illicit drugs. This lifestyle behavior pattern will lead to less health conditions and longer life span. If BMI greater than 25 dietary consult advised. Questions answered. Prescripti on of contraception 172565611 Z30.017 [id number] Discussed with patient risks, benefits, and alternativ es of contracept ion. Discussed all options, including natural family planning, condoms, combined oral contracept diamante, contracept dannie patch, Nuva-ring, Depo-Prove ra, Nexplanon, intrauteri ne device, and sterilizat ion (tubal ligation, vasectomy) . Advised that of the above listed options, only condoms can prevent sexually transmitte d infections and that condoms can be used together with any form of contracept ion. int in nexplanono rder placed for nexplanon, will notify pt with nexplanon has arrived to office and schedule for insertion Venereal d isease screening 405406803 Z11.3 [id number] PATRICIA Jarrett [facility] [address] [address] 03/22/2025 14:27:40 03/23/2025 09:46:19 Implantation of subcutaneous contraceptive 386589785 Z30.017 [id number] R/b/a reviewed with ptUPT (-)Nexplan on inserted (see procedure note), questions answered, precaution s discussed Health Concerns Section Related Observation LastModified by Organization Detai ls LastModified Time None Recorded Concern Status LastModified by Organization Details LastModified Time None Recorded Advance Directives Directive N: Payers Insurance Date Sequence Insurance Name Policy Number Policy Saini Covered Member ID Saini Member ID Guarantor Name 02/10/2025 2 [place] [id number] Saray Gonzalez [id number] Stefany Kauffman 02/10/2025 1 [employer] [id number] Stefany Kauffman [id number] Stefany Kauffman 03/21/2025 2 [place] [id number] Saray Gonzalez [id number] Stefany Kauffman 03/21/2025 1 [employer] - [employer]NAGEMENT (PPO) [id number] Stefany Kauffman [id number] Stefany Kauffman 01/28/2025 1 [place] [id number] Saray Givens Lisa [id number] Stefany Kauffman Notes Date Note Type Note Provider Name and Address Organization Details Recorded Time 1 text/html Patient presents for Nexplanon removal. Andrew Lombardo MD [address], [place], [address], [facility] 06/30/2021 08:24:29 5 text/html Annual GYNReported by PatientGenitourinary symptomsFor menstrual cycle, patient reportsnormal menses. For urinary symptoms, patient reportsno hematuriaandno incontinence. For vulva, patient reportsno genital lesion. For vagina, patient reportsnormal vaginal discharge.Breast symptomsFor breast, patient reportsno breast pain,no breast lump, andno nipple discharge.ContraceptionFo r current contraception, (not currently sa).Endocrine symptomsFor sexual complaints, patient reportsno sexual complaints,no pain during intercourse, andnormal libido. For menopausal symptoms, patient reportsno menopausal symptomsandnormal vaginal lubrication.Psychological symptomsFor psychological symptoms, patient reportsno depression,no anxiety, andno pmdd.Preventative measuresFor preventive measures, patient reportsencourage self breast examination,encourage regular exercise,encourage no tobacco use, andencourage regular mammograms starting age [age]yolast pap 4-5yrs ago, wnl per ptnot currently SA, wants to discuss BC options, Int in nexplanon (had in the past) PATRICIA Jarrett [address], [place], [address], [facility] 02/10/2025 11:17:05 5 text/html 24yo presents for nexplanon insertion, currently on her period PATRICIA Jarrett [address], [place], [address], [facility] 03/23/2025 09:09:30 OBGyn Episode No OBEpisode recorded.
== END 2025-08-17 13:47 | disposition home or self-care (01) ==
PROVIDERS: Emergency Provider Emergency Medicine; PCP Internal Medicine
DX: S39.012A Strain of muscle, fascia and tendon of lower back, initial encounter (principal); X50.0XXA Overexertion from strenuous movement or load, initial encounter; K21.9 Gastro-esophageal reflux disease without esophagitis; F17.290 Nicotine dependence, other tobacco product, uncomplicated
CPT/HCPCS: 96372; 96374; 99284; A9270; J1171; J1885